=== PATIENT | female | born 1955 | race Caucasian/White ===

== ENCOUNTER → 2024-10-19 | Outpatient (CLI) | payer MEDICARE ==
--- NOTE | 2024-10-19 16:08 | US ---
EXAMINATION TYPE: US kidneys/renal and bladder DATE OF EXAM: 10/19/2024 COMPARISON: NONE CLINICAL INDICATION: Female, 69 years old with history of R10.2 Pelvic pain; TECHNIQUE: Grayscale imaging of the bilateral kidneys and urinary bladder: FINDINGS: EXAM MEASUREMENTS: Right Kidney: 10.3 x 5.0 x 4.4 cm Left Kidney: 10.8 x 5.3 x 4.4 cm Right Kidney: hydronephrosis, 1.3cm cystic area lateral superior pole, 0.6 cm echogenic focus superio r pole Left Kidney: dilated renal pelvis, 1.5cm cystic area medial mid pole Bladder: wnl Bilateral Jets seen: not seen There is no evidence for hydronephrosis at this point in time. No nephrolithiasis is seen. No robinson s are identified. The urinary bladder is anechoic. IMPRESSION: 1. Right hydronephrosis correlate for obstructive uropathy. 2. No evidence for solid renal mass. 3. Bilateral renal cysts. 4. Right renal calculus suggested. [facility], , 10/19/2024 4:06 PM
== END | disposition home or self-care (01) ==
LOC: RADUSWWP 15:27
PROVIDERS: ATTEND Internal Medicine Geriatric Medicine
DX: N13.2 Hydronephrosis with renal and ureteral calculous obstruction (principal); N28.1 Cyst of kidney, acquired
CPT/HCPCS: 76770

== ENCOUNTER → 2024-10-30 | Outpatient (CLI) | payer MEDICARE ==
--- NOTE | 2024-10-31 07:18 | MM ---
Reason for Exam: Screening (asymptomatic). Last mammogram was performed 2 year(s) and 2 month(s) ago. Patient History: Menarche at age 11. Excisional Biopsy on the Left side. Risk Values: Elsi 5 year model risk: 1.5%. NCI Lifetime model risk: 4.3%. Prior Study Comparison: 04/03/2002 Bilateral Screening Mammogram, [facility]. 04/19/2002 Right Special View Mammogram, [facility]. 03/07/2004 Bilateral Screening Mammogram, [facility]. 08/17/2019 Bilateral Screening Mammogram, [facility]. 05/28/2021 Bilateral Screening Mammogram, [facility]. 09/10/2022 Bilateral Screening Mammogram, [facility]. Tissue Density: The breasts are almost entirely fatty. Findings: Analyzed By CAD. Right breast: There is no suspicious group of microcalcifications or new suspicious mass. Left breast: There is no suspicious group of microcalcifications or new suspicious mass. Overall Assessment: Negative, BI-RAD 1 Management: Screening Mammogram of both breasts in [address] [facility] will attempt to contact patient to return for supplemental views and ultrasound if indicated. Patient should continue monthly self-breast exams. A clinical breast exam by your physician is recommended on an annual basis. This exam should not preclude additional follow-up of suspicious palpable abnormalities. Note on Elsi scores and lifetime risk: 1. A Elsi score greater than 3% is considered moderate risk. If this is the case, consider specialist referral to assess eligibility for a risk reducing agent. 2. If overall lifetime risk for the development of breast cancer is 20% or higher, the patient may qualify for future screening with alternating mammogram and breast MRI. [facility], , 10/31/2024 7:15 AM. Electronically signed and approved by: Akin Eng DO
--- NOTE | 2024-11-05 07:41 | BD ---
EXAMINATION TYPE: Axial Bone Density DATE OF EXAM: 10/30/2024 CLINICAL HISTORY: 69 years old Female. ICD-10 CODE: M89.9 DISORDER OF BONE , Additional History: Height: 60 in Weight: 162 lbs FRAX RISK QUESTIONS: History of Fracture in Adulthood: rt ankle age 44 Secondary Osteoporosis: 5. Chronic liver disease: elevated liver enzymes, fatty liver EXAM MEASUREMENTS: Bone mineral densitometry was performed using the [employer] System. Bone mineral density as measured about the Lumbar spine is: ----- L1-L4(G/cm2): 1.006 T Score Values are as follows: ----- L1: -1.2 ----- L2: -2.1 ----- L3: -1.9 ----- L4: -0.9 ----- L1-L4: -1.5 Z Score Values are as follows: ----- L1: 0.2 ----- L2: -0.7 ----- L3: -0.5 ----- L4: 0.5 ----- L1-L4: -0.1 Bone mineral density baseline Bone mineral density about the R hip (g/cm2): 0.917 Bone mineral density about the L hip (g/cm2): 0.909 T Score values are as follows: -----R Neck: -1.8 -----L Neck: -1.9 -----R Total: -0.7 -----L Total: -0.8 Z Score values are as follows: -----R Neck: -0.3 -----L Neck: -0.4 -----R Total: 0.6 -----L Total: 0.5 Bone mineral density baseline FRAX%s: The graph provided illustrates a 17.1% chance for a major osteoporotic fx and a 3.0% chance f or the hips probability for fx in 10 years time. IMPRESSION: Osteopenia (T Score between -2.5 and -1). There is slightly increased risk of fracture and the patient may be considered for treatment. Re-Screen 2-5 years. NOTE: T-SCORE=SD OF THE YOUNG ADULT MEAN. [facility], , 11/05/2024 7:38 AM
== END | disposition home or self-care (01) ==
LOC: RADBDWWP 15:19
PROVIDERS: ATTEND Internal Medicine Geriatric Medicine
DX: Z12.31 Encounter for screening mammogram for malignant neoplasm of breast (principal); M89.9 Disorder of bone, unspecified; M85.9 Disorder of bone density and structure, unspecified; M85.80 Other specified disorders of bone density and structure, unspecified site; K76.0 Fatty (change of) liver, not elsewhere classified; R92.313 Mammographic fatty tissue density, bilateral breasts
CPT/HCPCS: 77063; 77067; 77080

== ENCOUNTER 2024-11-06 12:16 | Day surgery (SDC) | payer MEDICARE ==
[2024-11-06] MEDS ORDERED: LIDOCAINE 1% (10MG/ML) FOR IV START INTRADERMA PRN (12:27)
[2024-11-06] MEDS ORDERED: MIDAZOLAM 2 MG/2 ML VIAL IV PRN (12:27)
[2024-11-06] MEDS ORDERED: HYDROmorphone 0.5 MG/0.5 ML SYRINGE IVP PRN (12:27)
[2024-11-06] MEDS ORDERED: fentaNYL (PF) 50 MCG/ML 2 ML AMP IVP PRN (12:27)
[2024-11-06] MEDS ORDERED: LACTATED RINGERS 1,000 ML IV SCH (12:27)
[2024-11-06] MEDS: IV FLUID CONTINUATION 1,000 ML IV ONE (12:33)
[2024-11-06] MEDS: ONDANSETRON 4 MG/2 ML VIAL IVP ONE (13:03)
[2024-11-06] MEDS: DEXAMETHASONE SOD PHOSPHATE 4 MG/ML 1 ML VIAL IV ONE (13:03)
[2024-11-06 13:14] LABS: Basophils % (A) 1 %; Eosinophils # (A) 0.2 k/uL (0-0.7); Eosinophils % (A) 4 %; HCT 46.3 % (34.0-46.0); HGB 15.6 gm/dL (11.4-16.0); Lymphocytes # (A) 1.5 k/uL (1.0-4.8); Lymphocytes % (A) 26 %; MCH 30.7 pg (25.0-35.0); MCHC 33.6 g/dL (31.0-37.0); MCV 91.3 fL (80.0-100.0); Monocytes # (A) 0.3 k/uL (0-1.0); Monocytes % (A) 5 %; Neutrophils # (A) 3.5 k/uL (1.3-7.7); Neutrophils % (A) 62 %; Platelet Count 302 k/uL (150-450); RBC 5.07 m/uL (3.80-5.40); RDW 13.2 % (11.5-15.5); WBC 5.7 k/uL (3.8-10.6)
[2024-11-06 13:36] LABS: African American GFR (CKD) >90 (>60 ml/min/1.73 sqM); Anion Gap 10 mmol/L; Blood Urea Nitrogen 15 mg/dL (7-17); Calcium 10.1 mg/dL (8.4-10.2); Carbon Dioxide 24 mmol/L (22-30); Chloride 105 mmol/L (98-107); Glucose 96 mg/dL (74-99); Non-African American GFR(CKD) 87 (>60 ml/min/1.73 sqM); Sodium 139 mmol/L (137-145)
--- NOTE | 2024-11-06 13:44 | XR ---
EXAMINATION TYPE: XR KUB portable DATE OF EXAM: 11/06/2024 1:22 PM COMPARISON: None CLINICAL INDICATION: Female, 69 years old with history of kidney stone; [facility] TECHNIQUE: One radiographic view of the abdomen was obtained. FINDINGS: The bowel gas pattern is nonspecific without dilated loops of small or large bowel. . Fecal material and gas are demonstrated throughout the colon and rectum. There is no evidence for organome petrona or pneumoperitoneum. Degeneration changes of the spine. No acute osseous process. Right ureter al sclerotic focus at the level of L3 just below the transverse process. This measures up to 5 mm. IMPRESSION: Suspected right proximal ureter calculus possibly within the [facility], , 11/06/2024 1:42 PM
[2024-11-06] MEDS ORDERED: ePHEDrine 50 MG/ML 1 ML VIAL ONE (13:48)
[2024-11-06] MEDS ORDERED: PROPOFOL 10 MG/ML 20 ML VIAL IV ONE (13:48)
[2024-11-06] MEDS ORDERED: LABETALOL 5 MG/ML VIAL MDV ONE (13:48)
[2024-11-06] MEDS ORDERED: DEXAMETHASONE SOD PHOSPHATE 10 MG/ML 1 ML VIAL ONE (13:48)
[2024-11-06] MEDS ORDERED: fentaNYL (PF) 50 MCG/ML 2 ML AMP ONE (13:48)
[2024-11-06] MEDS ORDERED: LIDOCAINE 1% INJ 10MG/ML (20 ML MDV) ONE (13:48)
--- NOTE | 2024-11-06 13:54 | P.HPIHPCON ---
History of Present Illness H&P Date: 11/06/24 Chief Complaint: Right renal stone, hydronephrosis This is a 69-year-old female with history of a 5 mm right-sided renal pelvis stone causing hydronephrosis. Option of medical expulsive therapy versus ureteroscopy with holmium laser versus ESWL was discussed in detail, risk and benefit of each approach were discussed, she agreed to proceed with right-sided ureteroscopy with holmium laser, aware of the risk which includes but not limited to bleeding, infection, injury to the ureter. She understood all risk and agreed to proceed Consent for Procedure: I have explained the operation/procedure to the patient, including the risks, benefits, side effects, alternative therapies (including not receiving the proposed treatment or service), the likelihood of the patient achieving his/her goals, and potential recuperation problems for the procedure/sedation/analgesia, as well as any blood products, if indicated. I also explained to the patient the risks, benefits and side effects of the alternatives, as well as the risks related to not receiving the proposed procedure, care, treatment, or services. Past Medical History Past Medical History: No Reported History Additional Past Medical History / Comment(s): kidney stones History of Any Multi-Drug Resistant Organisms: None Reported Past Surgical History: Adenoidectomy, Hysterectomy, Tonsillectomy Additional Past Surgical History / Comment(s): fx ankle repair Past Anesthesia/Blood Transfusion Reactions: No Reported Reaction Smoking Status: Never smoker - Past Family History Father Family Medical History: No Reported History Medications and Allergies Home Medications Medication Instructions Recorded Confirmed Type Citalopram Hydrobromide 20 mg PO DAILY 11/02/24 11/06/24 History [Citalopram HBr] Multivitamins, Thera [Multivitamin 1 tab PO DAILY 11/02/24 11/06/24 History (formulary)] Vit D(Unk) 1,000 units PO DAILY 11/02/24 11/06/24 History Allergies Allergy/AdvReac Type Severity Reaction Status Date / Time No Known Allergies Allergy Verified 11/06/24 12:40 Surgical - Exam Vital Signs Temp Pulse Resp BP Pulse Ox 98.1 F 69 16 159/74 95 11/06/24 12:42 11/06/24 12:42 11/06/24 12:42 11/06/24 12:42 11/06/24 12:42 - General no distress, no pain - Eyes normal ocular movement, no pale - ENT normal nares, normal mucosa - Respiratory normal expansion, normal respiratory effort - Abdomen Abdomen: soft, non tender, no distended Results - Labs 11/06/24 12:55 11/06/24 12:55 Abnormal Lab Results - Last 24 Hours (Table) 11/06/24 Range/Units 12:55 Hct 46.3 H (34.0-46.0) % Diabetes panel 11/06/24 Range/Units 12:55 Sodium 139 (137-145) mmol/L Potassium 5.0 (3.5-5.1) mmol/L Chloride 105 (98-107) mmol/L Carbon Dioxide 24 (22-30) mmol/L BUN 15 (7-17) mg/dL Creatinine 0.71 (0.52-1.04) mg/dL Glucose 96 (74-99) mg/dL Calcium 10.1 (8.4-10.2) mg/dL Calcium panel 11/06/24 Range/Units 12:55 Calcium 10.1 (8.4-10.2) mg/dL Pituitary panel 11/06/24 Range/Units 12:55 Sodium 139 (137-145) mmol/L Potassium 5.0 (3.5-5.1) mmol/L Chloride 105 (98-107) mmol/L Carbon Dioxide 24 (22-30) mmol/L BUN 15 (7-17) mg/dL Creatinine 0.71 (0.52-1.04) mg/dL Glucose 96 (74-99) mg/dL Calcium 10.1 (8.4-10.2) mg/dL Adrenal panel 11/06/24 Range/Units 12:55 Sodium 139 (137-145) mmol/L Potassium 5.0 (3.5-5.1) mmol/L Chloride 105 (98-107) mmol/L Carbon Dioxide 24 (22-30) mmol/L BUN 15 (7-17) mg/dL Creatinine 0.71 (0.52-1.04) mg/dL Glucose 96 (74-99) mg/dL Calcium 10.1 (8.4-10.2) mg/dL Assessment and Plan Assessment: OR for right-sided ureteroscopy, holmium laser lithotripsy, stone basketing and stent insertion
--- NOTE | 2024-11-06 14:53 | P.OP ---
Date of Procedure: 11/06/24 Preoperative Diagnosis: Right ureteral stone Postoperative Diagnosis: Same Procedure(s) Performed: Cystoscopy, right ureteroscopy, holmium laser lithotripsy, stone basketing and stent insertion Implants: 6 Estonian by 24 cm stent in the right ureter Anesthesia: BRIAN Surgeon: Khai Yang Estimated Blood Loss (ml): 5 Pathology: other (Right ureteral stone) Condition: stable Disposition: PACU Indications for Procedure: This is a 69-year-old female with history of a 5 mm right-sided renal pelvis stone causing hydronephrosis. Option of medical expulsive therapy versus ureteroscopy with holmium laser versus ESWL was discussed in detail, risk and benefit of each approach were discussed, she agreed to proceed with right-sided ureteroscopy with holmium laser, aware of the risk which includes but not limited to bleeding, infection, injury to the ureter. She understood all risk and agreed to proceed Operative Findings: Right-sided proximal impacted ureteral stone Description of Procedure: Patient brought to the operating room, general anesthesia was induced. She was prepped and draped in sterile fashion placed in a dorsolithotomy position. Cystoscopy fitted 21 Estonian sheath was inserted per urethra, cystoscopy was performed showed no abnormality within the bladder. [employer] Observer image was obtained which showed a right sided radiopaque stone along the course of the proximal ureter. Next I attempted to advance a wire past the stone into the kidney but resistance was met at the level of the stone. At this time a semirigid ureteroscope was inserted per urethra and advanced up the right ureteral orifice, I advanced the scope up to the ureteral stone. The stone was impacted and there was edema around the stone, I reattempted to advance the wire but resistance was met. At this time using the holmium laser I very gently laser the stone ensuring no injury to the ureteral mucosa, after partial fragmentation at this point I reattempted to advance a wire was able to advance the wire past the stone and into the kidney. This time I continued with the remainder of the stone, a couple of small fragments distal to the area of edema was seen and those were removed using the stone basket. At this time the advance the scope past the stone and into the UPJ, no additional fragments or stones were encountered. Given the edema at the level of the proximal ureter decision was made not to advance a flexible ureteroscope or access sheath into that area given the risk of injury to the ureter. Pullback ureteroscopy was performed which showed no injury to the ureter or any ureteral stone. On fluoroscopy there was no radiopaque density seen. Pullback ureteroscopy was performed showed no injury to the ureter or any ureteral stone. Next a ureteral stent was passed over the wire, the proximal curl was visualized on fluoroscopy and the distal curl was visualized using the cystoscope. The bladder was emptied at the end of the case. Patient tolerated procedure was taken to recovery in stable condition
[2024-11-06 15:00] VITALS: TEMP 96.9
--- NOTE | 2024-11-06 15:02 | FL ---
Fluoroscopy INDICATION: Pain FINDINGS: Fluoroscopy time: 43.9 seconds. Total dose area product (DAP) in uGy*m?, mGy*cm? (or similar): 3.1677 Images obtained: 4. Images demonstrate placement of a right ureteral stent IMPRESSION: 1. Documentation of fluoroscopy. [facility], , 11/06/2024 3:00 PM
[2024-11-06 15:44] VITALS: RESP 18
[2024-11-06 16:27] VITALS: BP 152/79; PULSE 74
== END 2024-11-06 16:30 | disposition home or self-care (01) ==
LOC: OR 12:16
PROVIDERS: ATTEND Urology
DX: N13.2 Hydronephrosis with renal and ureteral calculous obstruction (principal); F32.A Depression, unspecified; Z79.899 Other long term (current) drug therapy; Z90.710 Acquired absence of both cervix and uterus; Z98.890 Other specified postprocedural states
CPT/HCPCS: 52356; 80048; 85025; 82365; 74018; C2625; C1758; C1769; J1100 ×2; J0690; J2405; J2003; J3010; J2704; J1920